=== PATIENT | male | born 1955 | race Caucasian/White ===

== ENCOUNTER 2017-07-29 09:28 | Emergency (ER) | payer BC ==
[2017-07-29 11:08] VITALS: BP 136/72
--- NOTE | 2017-07-29 11:18 | UC ---
Throat Pain/Nasal Jacinto HPI - HPI Summary HPI Summary: This is an otherwise healthy 62 yo male who presents with 2-3d of ST. She has an occasional cough with some congestion. No SOB or CP. No abd pain, n/v. NO sick contacts. No fever or chills. - History of Current Complaint Chief Complaint: UCGeneralIllness Stated Complaint: THROAT - Allergies/Home Medications Allergies/Adverse Reactions: Allergies Allergy/AdvReac Type Severity Reaction Status Date / Time Penicillins Allergy Unknown Verified 07/29/17 11:05 Reaction Details PMH/Surg Hx/FS Hx/Imm Hx Previously Healthy: Yes - Surgical History Surgical History: None - Family History Known Family History: Positive: None - Social History Alcohol Use: None Substance Use Type: Marijuana Smoking Status (MU): Never Smoked Tobacco Review of Systems Constitutional: Negative Skin: Negative Eyes: Negative ENT: Sore Throat Respiratory: Cough Cardiovascular: Negative Gastrointestinal: Negative Genitourinary: Negative Motor: Negative Neurovascular: Negative Musculoskeletal: Negative Neurological: Negative Psychological: Negative Is Patient Immunocompromised?: No All Other Systems Reviewed And Are Negative: Yes Physical Exam Triage Information Reviewed: Yes Appearance: Well-Appearing Vital Signs: Initial Vital Signs Temp 97.9 F 07/29/17 11:06 Pulse 53 07/29/17 11:06 Resp 18 07/29/17 11:06 BP 136/72 07/29/17 11:06 Pulse Ox 100 07/29/17 11:06 Vital Signs Reviewed: Yes ENT: Positive: Normal ENT inspection, Pharynx normal, TMs normal, Tonsillar swelling - mild Neck: Positive: Supple, Nontender, No Lymphadenopathy Respiratory: Positive: Chest non-tender, Lungs clear, Normal breath sounds. Negative: Crackles, Rhonchi, Wheezing Cardiovascular: Positive: RRR, No Murmur Abdomen Description: Positive: Nontender, Soft Neurological: Positive: Alert Psychological Exam: Normal Skin Exam: Normal Skin: Negative: rashes Diagnostics - Laboratory Diagnostic Studies Completed/Ordered: rapid strep - neg Throat Pain/Nasal Course/Dx - Course Course Of Treatment: This is a 62 yo male with a 2d h/o ST with mild cough and congestion. Exam is fairly benign. Rapid strep testing is negative. Likely a viral process. Recommend symptomatic care. - Differential Dx/Diagnosis Differential Diagnosis/HQI/PQRI: Laryngitis, Pharyngitis, Sinusitis, Tonsillitis Provider Diagnoses: 1. Viral URI Discharge - Discharge Plan Condition: Stable Disposition: HOME Patient Education Materials: Upper Respiratory Infection (ED) Referrals: Landry Arevalo MD [Primary Care Provider] - If Needed Additional Instructions: Instructions: 1. This is likely a viral process 2. Treat with decongestants and throat lozenges for symptomatic relief. 3. Symptoms may last up to 7-10 days
== END 2017-07-29 11:30 | disposition home or self-care (01) ==
LOC: UCEAST 09:28
DX: J06.9 Acute upper respiratory infection, unspecified (principal); Z88.0 Allergy status to penicillin; F12.90 Cannabis use, unspecified, uncomplicated
CPT/HCPCS: 87651; 99211; G0463